=== PATIENT | female | born 1985 | race Caucasian/White ===

== ENCOUNTER 2017-06-09 20:29 | Emergency (ER) | payer MEDICAID ==
[~2017-06-09] VITALS: Ht 180.3 cm; Wt 134.0 kg
[2017-06-09 20:33] VITALS: BP 149/102
[2017-06-09 22:35] LABS: D-DIMER 0.86 MG/L FEU (0-0.50)
== END 2017-06-10 00:23 | disposition home or self-care (01) ==
LOC: ER 20:29
DX: M79.604 Pain in right leg (principal); M79.89 Other specified soft tissue disorders; R11.2 Nausea with vomiting, unspecified; Z88.0 Allergy status to penicillin
CPT/HCPCS: 36415; 85379; 93971; 99285

== ENCOUNTER 2020-05-25 09:36 | Emergency (ER) | payer MEDICAID ==
[~2020-05-25] VITALS: Ht 177.8 cm; Wt 118.2 kg
[2020-05-25 09:39] VITALS: BP 178/113
[2020-05-25] MEDS ORDERED: ketorolac trometh. 30mg/ml inj. IM ONE (09:55)
[2020-05-25] MEDS ORDERED: gabapentin 300mg capsule PO ONE (09:55)
[2020-05-25] MEDS ORDERED: IBUP-1985 PO (09:57)
[2020-05-25] MEDS ORDERED: GABA100C PO (09:57)
== END 2020-05-25 10:20 | disposition home or self-care (01) ==
LOC: ER 09:37
DX: M54.31 Sciatica, right side (principal); M79.604 Pain in right leg; Z98.890 Other specified postprocedural states; Z88.0 Allergy status to penicillin; Z79.899 Other long term (current) drug therapy
CPT/HCPCS: 96372; 99283; J1885

== ENCOUNTER 2021-01-09 19:45 | Emergency (ER) | payer MEDICAID ==
[~2021-01-09] VITALS: Ht 175.3 cm; Wt 120.5 kg
[~2021-01-09 19:45] MED LIST: GABA100C PO; IBUP-1985 PO
[2021-01-09] MEDS ORDERED: HYDR-3965 PO ×2 (23:25→23:45)
[2021-01-09] MEDS ORDERED: CLIN300C71 PO ×2 (23:25→23:45)
[2021-01-09] MEDS ORDERED: clindamycin 150mg capsule PO ONE (23:30)
[2021-01-09] MEDS ORDERED: HYDROcodone/acetaminophen 5mg/325mg tablet PO ONE (23:30)
[2021-01-09 23:52] VITALS: BP 135/95
== END 2021-01-09 23:53 | disposition home or self-care (01) ==
LOC: ER 19:45
DX: K02.9 Dental caries, unspecified (principal); K03.81 Cracked tooth; Z98.890 Other specified postprocedural states; Z88.0 Allergy status to penicillin; Z79.2 Long term (current) use of antibiotics; Z79.899 Other long term (current) drug therapy
CPT/HCPCS: 99283

== ENCOUNTER 2021-06-04 15:43 | Emergency (ER) | payer MEDICAID ==
[~2021-06-04] VITALS: Ht 180.3 cm; Wt 132.4 kg
[2021-06-04 15:58] VITALS: BP 169/117
[2021-06-04] MEDS ORDERED: OXYC-658 PO (17:37)
== END 2021-06-04 17:52 | disposition home or self-care (01) ==
LOC: ER 15:44
DX: M79.602 Pain in left arm (principal); Z88.0 Allergy status to penicillin
CPT/HCPCS: 29125; 73130; 99283

== ENCOUNTER 2021-10-20 08:45 | Emergency (ER) | payer MEDICAID ==
[~2021-10-20] VITALS: Ht 177.8 cm; Wt 122.7 kg
[2021-10-20] MEDS ORDERED: HYDROcodone/acetaminophen 5mg/325mg tablet PO ONE (09:35)
[2021-10-20 09:57] VITALS: BP 146/97
== END 2021-10-20 10:07 | disposition home or self-care (01) ==
LOC: ER 08:46
DX: S46.011A Strain of muscle(s) and tendon(s) of the rotator cuff of right shoulder, initial encounter (principal); M25.811 Other specified joint disorders, right shoulder; Z88.0 Allergy status to penicillin; Z98.890 Other specified postprocedural states; X50.0XXA Overexertion from strenuous movement or load, initial encounter; Y93.89 Activity, other specified; Y92.89 Other specified places as the place of occurrence of the external cause; Y99.8 Other external cause status
CPT/HCPCS: 73030; 99283; A4565

== ENCOUNTER 2021-11-04 16:55 | Emergency (ER) | payer MEDICAID ==
[~2021-11-04] VITALS: Ht 177.8 cm; Wt 123.2 kg
[2021-11-04 17:00] VITALS: BP 161/97
[2021-11-04] MEDS ORDERED: ondansetron 4mg rapidly disintigrating tab PO ONE (17:45)
[2021-11-04] MEDS ORDERED: HYDROcodone/acetaminophen 5mg/325mg tablet PO ONE (17:45)
[2021-11-04] MEDS ORDERED: orphenadrine citrate 60mg/2ml inj. IM ONE (17:45)
[2021-11-04] MEDS ORDERED: HYDR-3965 PO (18:43)
== END 2021-11-04 19:01 | disposition home or self-care (01) ==
LOC: ER 16:56
DX: M25.551 Pain in right hip (principal); M54.50 Low back pain, unspecified; Z88.0 Allergy status to penicillin
CPT/HCPCS: 73501; 96372; 99283; J2360